=== PATIENT | female | born 1955 | race Caucasian/White ===

== ENCOUNTER → 2016-09-03 | Outpatient (CLI) | payer MEDICARE ==
[~2016-09-03] MED LIST: ADVAIR 100-501 EACH IH; ADVAIR 5001 DISK W/2 INH; ADVAIR 5001 DISK W/D PO; ALBUTEROL 0.5ML INH; ALBUTEROL17 GM INH; ALLEGRA PO; ALPRAZOLAM PO; ANORO ELLIPTA1 EACH INH; ARNUITY ELLIP100 MCG INH; AUGMENTIN PO; BACTRIM DS TABL1 TA1 PO; BENTYL10 M1 PO; BREO ELLIPTA 21 EACH INH; COMBIVENT INH14.7 GM INH; COMBIVENT RESPIM4 GM INH; COMBIVENT U/D3 M2 NEB; COMBIVENT U/D3 M3 INH; DETROL LA PO; DEXILANT60 MG PO; DUONEB 2.5-0.5 M3 ML NEB; GLUCOPHAGE500 M1 PO; HCTZ PO; HYDROCHLOROTHIA25 MG PO; HYDROCODON-ACE1 EAC5 PO; K-DUR20 ME1 PO; KLOR-CON PO; LASIX PO; LASIX20 MG PO; LEVAQUIN PO; LIPITOR PO; LIPITOR40 MG PO; MAGNESIUM27 MG PO; MEDROL PO; METFORMIN HCL500 M1 PO; METOCLOPRAMI10 MG/ML PO; MOBIC15 MG PO; MORGIDOX100 MG PO; NEXIUM PO; NORVASC PO; OXYGEN 2L; POTASSIUM CHLO10 MEQ PO; PREDNISOLONE SO10 MG PO; SPIRIVA18 MCG PO; SYMBICORT INH; TRIAMTERENE-HC1 EAC1 PO; TRIAMTERENE-HCT1 TA6 PO; VICODIN 5/500 T1 TAB PO; XANAX0.5 MG PO; ZANTAC150 MG PO; ZOFRAN ODT4 MG DOB; ZOFRAN PO; ZYRTEC PO
[2016-09-03 18:26] LABS: POC - CREATININE 1.45 mg/dL (0.44-1.03)
== END | disposition home or self-care (01) ==
LOC: CMRI 17:23
PROVIDERS: Otolaryngology
DX: H91.22 Sudden idiopathic hearing loss, left ear (principal)
CPT/HCPCS: 82565

== ENCOUNTER → 2016-09-18 | Outpatient (CLI) | payer MEDICARE ==
--- NOTE | ~2016-09-18 | CT77 ---
[facility] A Service of [facility] RADIOLOGY TEXT RESULTS PATIENT: VINOD MENDES LOCATION: [facility] : 54 UNIT #: [id number] AGE: [address]: KATARZYNA HALL SEX: F ORDER DR: [id number] [facility] [address] [place], [place] [address] [id number] O MR#: [id number] Acc #: [id number] NAME: VINOD MENDES. : 1955 SEX: F STUDY DATE/TIME: 09/18/2016 15:55 UNIT: [facility] ROOM: STUDY DESCRIPTION: CT IAC, Sella, Temporal Bone W Attending Physician: Katarzyna Hall Referring Physician: Katarzyna Hall Ordering Physician: Physician Non-Staff Primary Care Physician: Reji Cintron M.D. MEDICAL IMAGING REPORT This report is preliminary unless electronic signature is present EXAM Temporal bones CT no contrast. DATE 09/18/2016 PROCEDURE Axial unenhanced temporal bones CT with multiplanar reformats. This CT exam was performed with one or more of the following radiation dose reduction techniques: automatic exposure control, adjustment of mA and/or kV according to patient size, and iterative reconstruction. 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 FINDINGS Soft tissue structures are poorly evaluated by this technique but appear grossly normal. On the right, the middle ear and mastoids are normally pneumatized and aerated. The ossicles are normal. The labyrinth is normal without evidence of abnormal mineralization or surrounding demineralization. There is no carotid or jugular or facial nerve or tegmen dehiscence. On the left, the middle ear and mastoids are normally pneumatized and aerated. The ossicles are normal. The labyrinth is normal without evidence of abnormal mineralization or surrounding demineralization. There is no carotid or jugular or facial nerve or tegmen dehiscence. There is a normal foramen spinosum bilaterally. [facility] A Service of [facility] RADIOLOGY TEXT RESULTS PATIENT: VINOD MENDES LOCATION: [facility] : 54 UNIT #: [id number] AGE: [address]: KATARZYNA HALL SEX: F ORDER DR: IMPRESSION Normal bilateral temporal bone CT. Dictated by... Kevan Chun M.D. THIS IS AN ELECTRONICALLY VERIFIED REPORT Kevan Chun M.D. at 09/23/2016 5:05 PM DURGA/julissa TD: 09/21/2016 09:57 JOB #: [id number] MEDICAL IMAGING REPORT Page 1 of 1 COPY
[2016-09-18 16:16] LABS: POC - CREATININE 1.45 mg/dL (0.44-1.03)
== END | disposition home or self-care (01) ==
LOC: CCAT 14:32
PROVIDERS: Physician Assistant
DX: H91.21 Sudden idiopathic hearing loss, right ear (principal)
CPT/HCPCS: 70480; 82565

== ENCOUNTER 2016-10-09 15:41 | Emergency (ER) | payer MEDICARE ==
--- NOTE | ~2016-10-09 | CT4 ---
[facility] A Service of [facility] & [facility] RADIOLOGY TEXT RESULTS PATIENT: VINOD MENDES LOCATION: [facility] : 54 UNIT #: [id number] AGE: [address]: Armando Donato MD SEX: F ORDER DR: [id number] [facility] [address] [place], [place] [address] [id number] E MR#: [id number] Acc #: [id number] NAME: VINOD MENDES. : 1955 SEX: F STUDY DATE/TIME: 10/09/2016 17:19 UNIT: [facility] ROOM: STUDY DESCRIPTION: CT Abd and Pelv Wo Cont Attending Physician: Robin Donato M.D. Ordering Physician: Dedrick Root D.O. Primary Care Physician: Reji Cintron M.D. MEDICAL IMAGING REPORT This report is preliminary unless electronic signature is present EXAM CT abdomen and pelvis 10/09/2016 HISTORY Right flank pain for [address] abdomen and pelvis performed without administration of oral or intravenous contrast. This CT exam was performed with one or more of the following radiation dose reduction techniques: automatic exposure control, adjustment of mA and/or kV according to patient size, and iterative reconstruction. COMPARISON STUDIES No prior CTs of abdomen and pelvis for comparison. There are limited views of the upper thorax from a CT of the chest dated 06/17/2016. FINDINGS Centrilobular emphysema in the visualized lung bases. Some areas of linear scarring or atelectasis at the bilateral lung bases. No suspicious nodule. No clear indication of acute infectious or inflammatory disease. There are areas of mild bronchiectasis. Airspace disease seen in the lung bases on prior study have resolved. The inferior heart and pericardium suggests heart at upper limits of normal in size. Coronary arterial calcifications are present. The liver is unremarkable. Large non-obstructing gallstone currently located in gallbladder fundus measuring up to 3.1 cm in diameter. No pericholecystic inflammatory change. No ductal dilatation. No ductal calculi. The spleen, pancreas, adrenal glands unremarkable. No hydronephrosis or nephrolithiasis. A calcification in the medial right renal hilum is a vascular calcification. No perinephric or periureteral inflammatory change. No secondary findings [facility] A Service of [facility] RADIOLOGY TEXT RESULTS PATIENT: VINOD MENDES LOCATION: [facility] : 54 UNIT #: [id number] AGE: [address]: Armando Donato MD SEX: F ORDER DR: of recent stone passage. No cystic or solid mass lesion suggested. CT PELVIS: No inguinal adenopathy. Urinary bladder unremarkable. I believe the patient retains the uterus. Patient gives a history of prior surgery for prolapsed uterus and I believe the patient has undergone surgical tacking of the uterus to the anterior pelvic wall. The uterus extends rather far anteriorly and superiorly and there are overlying postoperative changes in the anterior abdominal wall. There is a posterior partially calcified uterine fibroid. No suspicious uterine or adnexal structures. Please correlate with surgical history. There is no free fluid the pelvis. No pelvic or retroperitoneal adenopathy. Distal esophagus, stomach, small bowel unremarkable. Appendix normal. Colon shows uncomplicated left taylor-colon diverticulosis. Atherosclerotic arterial calcifications. No aneurysm. Degenerative changes in the spine. No acute-appearing bony abnormality. IMPRESSION 1. No clearly acute abnormalities seen in the abdomen or pelvis. 2. Large fundal gallstones measuring up to 3.1 cm in diameter. No pericholecystic inflammatory change. No biliary ductal dilatation. 3. No renal calculi or obstruction. No perinephric inflammatory change. No secondary signs of recent stone passage. 4. Appearance of the uterus suggests prior surgical repair of uterine prolapse as described above. No acute appearing uterine or adnexal abnormality. 5. Appendix normal. 6. Uncomplicated left taylor-colon diverticulosis. 7. Emphysematous and mild bronchiectatic changes at lung bases. Minimal linear scarring or atelectasis. No basilar infectious or inflammatory lung disease suggested. 8. Extensive atherosclerotic arterial calcifications. No aneurysm. Dictated by... Kash Lnusford M.D. THIS IS AN ELECTRONICALLY VERIFIED REPORT Kash Lunsford M.D. at 10/13/2016 7:36 AM HI/jennifer TD: 10/09/2016 22:00 JOB #: [id number] MEDICAL IMAGING REPORT Page 1 of 1 COPY
--- NOTE | ~2016-10-09 | CR63 ---
[facility] A Service of [facility] RADIOLOGY TEXT RESULTS PATIENT: VINOD MENDES LOCATION: [facility] : 53 UNIT #: [id number] AGE: [address]: Dedrick Root DO SEX: F ORDER DR: [id number] [facility] [address] [place], [place] [address] [id number] E MR#: [id number] Acc #: [id number] NAME: VINOD MENDES. : 1955 SEX: F STUDY DATE/TIME: 10/09/2016 14:12 UNIT: [facility] ROOM: STUDY DESCRIPTION: CR Chest 2 View Attending Physician: Dedrick Root D.O. Ordering Physician: Dedrick Root D.O. Primary Care Physician: Reji Cintron M.D. MEDICAL IMAGING REPORT This report is preliminary unless electronic signature is present EXAM PA and lateral chest, 2 views. DATE OF STUDY 10/09/2016 HISTORY Shortness of air for 3 days. COMPARISON 06/17/2016 FINDINGS PA and lateral examination of the chest upright shows a good expansion of the parenchyma with a normal distribution of the pulmonary vascularity. There is no indication of congestion, effusion, infiltrate, tumor, or nodular density. The pleural reflections and diaphragmatic contours are normal. The cardiac silhouette and mediastinal anatomy is within normal limits. IMPRESSION Normal/negative PA and lateral chest. Dictated by... Kevan Chun M.D. THIS IS AN ELECTRONICALLY VERIFIED REPORT Kevan Chun M.D. at 10/09/2016 4:53 PM TEV/jt [facility] A Service [facility] RADIOLOGY TEXT RESULTS PATIENT: VINOD MENDES LOCATION: [facility] : 53 UNIT #: [id number] AGE: [address]: Dedrick Root DO SEX: F ORDER DR: TD: 10/09/2016 16:24 JOB #: [id number] MEDICAL IMAGING REPORT Page 1 of 1 COPY
[~2016-10-09 15:41] MED LIST changes: -AUGMENTIN PO; -BENTYL10 M1 PO; -BREO ELLIPTA 21 EACH INH; -COMBIVENT U/D3 M3 INH; -DEXILANT60 MG PO; -HYDROCODON-ACE1 EAC5 PO; -ZANTAC150 MG PO; -ZOFRAN PO
[2016-10-09 16:15] LABS: BASOPHIL% 0.3 % (0-2.5); EOSINOPHIL% 0.1 % (0.0-7.0); HEMATOCRIT 37.7 % (35.0-45.0); HEMOGLOBIN 11.9 gm/dL (12.0-16.0); LYMPHOCYTE% 8.5 % (17.0-45.0); MEAN CELL VOLUME 85.3 FL (83-96); MEAN CORPUSCULAR HGB CONC 31.6 g/dL (30-36); MONOCYTE# 0.4 X10e3 (0-1.0); MONOCYTE% 3.8 % (3.0-12.0); NEUTROPHIL# 10.4 X10e3 (1.5-7.1); NEUTROPHIL% 87.3 % (40-75); PLATELET COUNT 283 X10e3 (140-420); RED BLOOD COUNT 4.42 X10e (3.90-5.30); RED CELL DISTRIBUTION WIDTH 14.8 % (11.0-15.5); WHITE BLOOD COUNT 11.9 X10e3 (4.0-10.5)
[2016-10-09 16:16] LABS: DIFF IND NO
[2016-10-09 16:30] LABS: POC - CKMB 2.1 ng/mL (0.0-7.9); POC - TROPONIN <0.05 ng/mL (<=0.05)
[2016-10-09 16:42] LABS: ALBUMIN SERUM 3.2 g/dL (3.5-5.0); BILIRUBIN,TOTAL 0.2 mg/dL (0.2-2.0); BUN/CREATININE RATIO 18.57; CALCIUM SERUM 8.4 mg/dL (8.4-10.2); CREATININE SERUM 1.4 mg/dL (0.6-1.4); GLOM FILT RATE Estimated 40.2 mL/min (>60); POTASSIUM 3.8 mmol/L (3.5-5.1); PROTEIN TOTAL SERUM 6.5 g/dL (6.0-8.3)
[2016-10-09 17:16] LABS: URINE SOURCE CLEAN CATCH
[2016-10-09 17:21] LABS: URINE APPEARANCE CLEAR; URINE BILIRUBIN NEG (NEG); URINE BLOOD NEG (NEG); URINE COLOR YELLOW; URINE GLUCOSE >1000 MG/DL (NEG); URINE KETONE NEG (NEG); URINE LEUKOCYTE ESTERASE NEG (NEG); URINE NITRATE NEG (NEG); URINE PROTEIN NEG (NEG); URINE SPECIFIC GRAVITY 1.043 (1.003-1.035); URINE UROBILINOGEN 0.2 MG/DL (NEG)
[2016-10-09 17:32] LABS: CULTURE INDICATED? NO
[2016-10-26] MEDS ORDERED: METFORMIN HCL500 M1 PO (10:24)
[2016-10-26] MEDS ORDERED: COMBIVENT RESPIM4 GM INH (10:24)
[2016-10-26] MEDS ORDERED: ZANTAC150 MG PO (10:25)
[2016-10-26] MEDS ORDERED: COMBIVENT U/D3 M3 INH (10:27)
[2016-10-26] MEDS ORDERED: TRIAMTERENE-HC1 EAC1 PO (10:28)
[2016-10-26] MEDS ORDERED: BREO ELLIPTA 21 EACH INH (10:29)
[2016-10-27] MEDS ORDERED: DEXILANT60 MG PO (15:49)
[2016-10-27] MEDS ORDERED: ZOFRAN PO (15:49)
[2016-10-27] MEDS ORDERED: BENTYL10 M1 PO (15:50)
[2016-10-27] MEDS ORDERED: AUGMENTIN PO (15:53)
== END 2016-10-09 18:55 | disposition home or self-care (01) ==
LOC: CED 15:41
PROVIDERS: Emergency Medicine
DX: K80.20 Calculus of gallbladder without cholecystitis without obstruction (principal); E11.65 Type 2 diabetes mellitus with hyperglycemia; I10 Essential (primary) hypertension; J44.9 Chronic obstructive pulmonary disease, unspecified; F17.200 Nicotine dependence, unspecified, uncomplicated; Z88.8 Allergy status to other drugs, medicaments and biological substances
CPT/HCPCS: 36415; 71020; 74176; 80053; 81003; 82553; 83690; 84484; 85025; 85379; 96361; 96374; 99284; J1885

== ENCOUNTER 2016-10-12 22:11 | Emergency (ER) | payer MEDICARE ==
[2016-10-26] MEDS ORDERED: COMBIVENT RESPIM4 GM INH (10:24)
[2016-10-26] MEDS ORDERED: METFORMIN HCL500 M1 PO (10:24)
[2016-10-26] MEDS ORDERED: ZANTAC150 MG PO (10:25)
[2016-10-26] MEDS ORDERED: COMBIVENT U/D3 M3 INH (10:27)
[2016-10-26] MEDS ORDERED: TRIAMTERENE-HC1 EAC1 PO (10:28)
[2016-10-26] MEDS ORDERED: BREO ELLIPTA 21 EACH INH (10:29)
[2016-10-27] MEDS ORDERED: ZOFRAN PO (15:49)
[2016-10-27] MEDS ORDERED: DEXILANT60 MG PO (15:49)
[2016-10-27] MEDS ORDERED: BENTYL10 M1 PO (15:50)
[2016-10-27] MEDS ORDERED: AUGMENTIN PO (15:53)
== END 2016-10-13 | disposition home or self-care (01) ==
LOC: CED 22:11
DX: K80.80 Other cholelithiasis without obstruction (principal); B02.9 Zoster without complications; E11.9 Type 2 diabetes mellitus without complications; I10 Essential (primary) hypertension; J44.9 Chronic obstructive pulmonary disease, unspecified; Z98.890 Other specified postprocedural states
CPT/HCPCS: 99283

== ENCOUNTER → 2016-10-26 | Outpatient (CLI) | payer MEDICARE ==
[~2016-10-26] MED LIST changes: +AUGMENTIN PO; +BENTYL10 M1 PO; +BREO ELLIPTA 21 EACH INH; +COMBIVENT U/D3 M3 INH; +DEXILANT60 MG PO; +HYDROCODON-ACE1 EAC5 PO; +ZANTAC150 MG PO; +ZOFRAN PO
--- NOTE | ~2016-10-26 | EKG ---
PATIENT: VINOD MENDES UNIT #: [id number] Ventricular Rate: 98 BPM Atrial Rate: 98 BPM P-R Interval: 150 ms QRS Duration: 124 ms Q-T Interval: 390 ms QTC Calculation(Bezet): 497 ms P [place]: 61 degrees Calculated R [place]: 7 degrees Calculated T [place]: 31 degrees Diagnosis Line: Normal sinus rhythm Diagnosis Line: Right bundle branch block Diagnosis Line: Abnormal ECG Diagnosis Line: When compared with ECG of 23-MAY-2015 15:17, Diagnosis Line: Right bundle branch block is now Present Diagnosis Line: Confirmed by MAIKOL BATISTA MD ([id number]) on Diagnosis Line: 10/27/2016 1:29:10 PM INTERPRETING MD: LESTER DANIELLE
[2016-10-26 10:47] LABS: HEMATOCRIT 38.1 % (35.0-45.0); HEMOGLOBIN 12.1 gm/dL (12.0-16.0); MEAN CELL VOLUME 85.8 FL (83-96); MEAN CORPUSCULAR HEMOGLOBIN 27.3 PG (28-34); MEAN CORPUSCULAR HGB CONC 31.8 g/dL (30-36); MEAN PLATELET VOLUME 8.1 FL (6.5-11.5); RED BLOOD COUNT 4.45 X10e (3.90-5.30); RED CELL DISTRIBUTION WIDTH 14.8 % (11.0-15.5); WHITE BLOOD COUNT 11.9 X10e3 (4.0-10.5)
[2016-10-26 11:12] LABS: ALBUMIN SERUM 3.3 g/dL (3.5-5.0); BILIRUBIN,TOTAL 0.4 mg/dL (0.2-2.0); BUN/CREATININE RATIO 11.81; CALCIUM SERUM 8.5 mg/dL (8.4-10.2); CREATININE SERUM 1.1 mg/dL (0.6-1.4); GLOM FILT RATE Estimated 53.8 mL/min (>60); POTASSIUM 3.6 mmol/L (3.5-5.1); PROTEIN TOTAL SERUM 6.8 g/dL (6.0-8.3)
== END | disposition home or self-care (01) ==
LOC: CAMB 09:34
PROVIDERS: Surgery
DX: Z01.818 Encounter for other preprocedural examination (principal)
CPT/HCPCS: 36415; 80053; 85027; 93005

== ENCOUNTER 2016-10-29 09:00 | Observation (INO) | payer MEDICARE ==
--- NOTE | ~2016-10-29 | OR ---
Unit #: [id number] #: [id number] Patient: VINOD MENDES [id number] [address] [place], [place] [address] [id number] O MR#: [id number] NAME: VINOD MENDES ROOM: Date of Procedure: 10/29/2016 Admission Date: 10/29/2016 Surgeon: Michael Gibbs Jr., M.D. : 1955 Otr Driver(s): ELTON Attending Physician: Michael Gibbs Jr., M.D. Primary Care Physician: Reji Cintron M.D. PROCEDURE OPERATIVE NOTE INDICATION FOR PROCEDURE The patient is a 61-year-old white female with severe chronic obstructive pulmonary disease. She recently presented to the office complaining of mid epigastric abdominal pain and workup revealed evidence of large gallstones on CT scan. It was felt that she needed laparoscopic cholecystectomy and that she would be at a moderate risk. She has been informed of this and has elected to go ahead with surgery. She understands the procedure including the risks, including that of common duct injury, biliary leak and bleeding and intraabdominal organ injury and she consents. PREOPERATIVE DIAGNOSIS Cholecystitis with cholelithiasis. POSTOPERATIVE DIAGNOSIS Cholecystitis with cholelithiasis, noting large gallstones approximately 3 cm in diameter. Also noted were multiple adhesions to the lower abdomen and very friable cystic duct. PROCEDURE PERFORMED Laparoscopic cholecystectomy. ANESTHESIA General with endotracheal at the base, 0.5% Marcaine with epinephrine locally at the port sites. PACKER DRIED BEEF Jeanette Martinez. PROCEDURE The patient was positioned in the supine position and after being anesthetized and intubated, was prepped and draped in routine fashion for laparoscopic cholecystectomy. A small 0.5 cm incision was made in the right upper quadrant abdominal wall area and a 5 mm Optiview introduced in the abdomen. The abdomen was then inflated with CO2 gas. The camera was introduced. There was no evidence of any injury related to introduction of the Optiview port. There were multiple adhesions of the lower abdomen and a small incision was made to the right of the umbilicus. A 5 mm port was placed in this area under direct visualization and the camera shifted to this port site. An additional 5 mm port was placed in the right lateral abdominal wall area lateral to the first and an 11 mm port just to the right of the upper midline. The gallbladder was lifted. There was significant distension of the colon and it was felt that an additional 5 Unit #: [id number] #: [id number] Patient: VINOD MENDES C mm port was required. A 0.5 cm incision was made right mid abdominal wall area and port was then placed. This was a 5 mm port and using the Kittner the colon and duodenum were then retracted inferior to allow for visualization of the triangle of Calot. Multiple adhesions were taken down with both blunt and sharp dissection, using the Hook scissors, and after the gallbladder was mobilized down to the area of the cystic duct. There was obviously a small artery inferior to the cystic duct which was isolated and hemo clipped times three and divided. There was evidence of cystic duct above this area. This was isolated and just with manipulation with the right angle the cystic duct tore. This indicated significant friability. It was then grasped using a Dolphin grasper from the right side of the abdomen and three clips were placed with excellent security and with no evidence of any leaks after it was clipped. An additional small cystic artery was identified up near the hilum, indicating a posterior branch. This was hemo clipped and divided. The gallbladder was then removed from its bed with a hook cautery using a current of 20 and after it was released, it was placed in an EndoCatch bag and brought out through the larger port site. There as a large, approximately 3 cm stone within it. The port was replaced. Subhepatic space checked. There was no evidence of any significant bleeding, but there was slight oozing from the whole area and it was felt that a 10 mm Kushal Garcia drain was indicated. The drain was then placed in the subhepatic space in routine fashion and brought through the lateral port site and secured to the skin with a 2-0 silk suture. After total hemostasis was noted, the ports were removed. CO2 was expressed and the abdominal port sites were injected with 0.5% Marcaine with epinephrine locally and the fascia and larger port site were approximated with two separate rrpmdl-qt-deatz 0 Vicryl sutures. The wounds were irrigated after hemostasis achieved with Bovie cautery, skin edges were approximated with stainless-steel skin clips and skin stapling device. Sterile dressings were applied externally. Estimated blood loss less than 1020 mL. The patient received less than 1500 mL crystalloid solution during the procedure. Sponges and instrument counts were correct times three. There as one 10 mm Kushal Garcia drain used in the subhepatic space. No complications. The patient was taken to the recovery room with stable vital signs in satisfactory condition. Dictated by... Michael Gibbs Jr., M.D. JMDo/aleksandar TD: 10/29/2016 11:59 JOB #: [id number] CC: Michael Gibbs Jr., M.D. Richard D. Larson, M.D. PROCEDURE OPERATIVE NOTE Page 1 of 1 X Michael Gibbs MD X PROCEDURE OPERATIVE NOTE
--- NOTE | ~2016-10-29 | CO ---
Unit #: [id number] #: [id number] Patient: VINOD DE LA GARZA [id number] [address] [place], [place] [address] [id number] I MR#: [id number] NAME: VINOD DE LA GARZA. ROOM: 471 Age: 61 Sex: F Admission Date: 10/29/2016 : 1955 Attending Physician: Michael Gibbs Jr., M.D. Primary Care Physician: Reji Cintron M.D. Consultation Date: 10/30/2016 CONSULTATION REPORT REASON FOR CONSULTATION COPD, sleep apnea. HISTORY OF PRESENT ILLNESS A 61-year-old female with chronic respiratory failure, 3 L; COPD; undergoing evaluation for sleep apnea, who is followed closely by Dr. Huggins and his nurse practitioner Sheila Renee. She tested positive on the sleep apnea protocol. She had some hypoxemia and we were asked to evaluate the patient. This was prior to the knowledge that she was Dr. Huggins's patient. She is adamant about leaving as soon as possible, so I have completed the evaluation. She feels at baseline, she is a little congested, but no dee sputum production. No wheezing, shortness of breath of the ordinary or hemoptysis. There is no chest pain. PAST MEDICAL HISTORY Remarkable for COPD; tobacco abuse; chronic respiratory failure, 3 L; hypertension; gastroesophageal reflux; hyperlipidemia; and recent cholecystectomy by Dr. Gibbs. MEDICATIONS At home, she is on Breo once a day and Combivent as needed. Also, metformin, Zantac, triamterene, Dexilant, Zofran, Bentyl. Apparently had been treated with Augmentin. She will go home on Levaquin per Dr. Gibbs's orders. ALLERGIES Haldol. Apparently gets a skin reaction to NicoDerm. SOCIAL HISTORY Continued smoking. FAMILY HISTORY No familial lung disease. REVIEW OF SYSTEMS Fairly unremarkable. She keeps repeating that she wants to go home. She was somnolent with the pain medications. Now, she has decreased her pain medications and she is wide awake. She sits up in bed. She is wanting to go home. She denies fever, chills, chest pain, palpitations, appropriate abdominal pain from her surgery, leg pain swelling. Really all other review of systems are negative. PHYSICAL EXAMINATION GENERAL: Reveals a patient, who is obese. Unit #: [id number] #: [id number] Patient: VINOD DE LA GARZA VITAL SIGNS: Afebrile. Pulse 72, respiratory rate is 18, blood pressure is 128/73, 4 feet 9 inches, 154 pounds, BMI is 33 to 34. She appears stable on her 3 L. HEENT: Pupils are equal, round, and reactive to light. Sclerae anicteric. Head atraumatic. NECK: Supple. No supraclavicular or cervical adenopathy appreciated. CHEST: Markedly decreased breath sounds. Mildly prolonged expiratory phase. No consolidation. CARDIAC: Distant heart tones. No pathologic murmur, rub, or gallop. ABDOMEN: Postop soft, appropriately tender. EXTREMITIES: Reveal no clubbing, cyanosis, or edema. No calf tenderness. SKIN: Warm and dry without rash or diaphoresis. Her oral exam did show some erythema particularly at the left tonsillar bed. It appears she has a bruise on her left tongue. She does complain of some hoarseness from the ET tube. DIAGNOSTIC STUDIES IMAGING STUDIES: Right lower lobe infiltrate versus atelectasis. LABORATORY RESULTS: Arterial blood gas; pH is 7.42, pCO2 of 49, pO2 of 66 that is on her 3 L. BUN is 12, creatinine 0.8. Potassium mildly low at 3.4. White blood cell count 19.9, hemoglobin 9.8, platelet count 351. CARDIOVASCULAR STUDIES: No EKG. IMPRESSION 1. Chronic obstructive pulmonary disease, certainly appears to be stable. 2. Chronic respiratory failure, on 3 L, compensated acid-base. 3. Obstructive sleep apnea, apparently has undergone diagnostic study and to get CPAP titration soon. 4. Postop cholecystectomy. 5. Tobacco use. 6. Hoarseness and abnormal oral exam, most likely secondary to intubation. 7. Abnormal chest x-ray with possible right lower lobe infiltrate. PLAN Dr. Gibbs has ordered Levaquin. This should cover pulmonary pathogens. It is okay to discharge from a pulmonary point of view and she will follow up with Dr. Huggins. I would consider repeat chest x-ray in 3 to 6 weeks. Appropriate evaluation if remains abnormal. Obviously, continue her oxygen, Breo, and Combivent. I have asked her to keep her followup for her CPAP titration as I suspect she has very severe sleep apnea. She should follow up with her hoarseness and oral exam, but I suspect both will improve over time. Thank you very much for allowing me to participate in the care of Ms. De La Garza. Dictated by... Arash Young M.D. KENYA/katina TD: 10/31/2016 23:49 JOB #: [id number] Prem Huggins M.D. Unit #: [id number] #: [id number] Patient: VINOD DE LA GARZA CONSULTATION REPORT Page 1 of 1 X Arash Young MD X CONSULTATION REPORT
--- NOTE | ~2016-10-29 | CR63 ---
[facility] A Service of [facility] RADIOLOGY TEXT RESULTS PATIENT: VINOD MENDES LOCATION: [place] [address]- : 53 UNIT #: [id number] AGE: [address]: Michael Gibbs MD SEX: F ORDER DR: [id number] [facility] [address] [place], [place] [address] [id number] I MR#: [id number] Acc #: [id number] NAME: VINOD MENDES. : 1955 SEX: F STUDY DATE/TIME: 10/30/2016 7:49 UNIT: [facility] ROOM: [facility] STUDY DESCRIPTION: CR Chest 2 View Attending Physician: Michael Gibbs Jr., M.D. Ordering Physician: Reji Daneille M.D. Primary Care Physician: Reji Cintron M.D. MEDICAL IMAGING REPORT This report is preliminary unless electronic signature is present EXAM PA and lateral chest. INDICATION Shortness of breath today. COMPARISON 10/09/2016 FINDINGS There is a band of atelectasis in the right mid zone. There is atelectasis or consolidation in the right lower lobe. Heart size stable. Degenerative changes thoracic spine. IMPRESSION There is atelectasis or consolidation in the right lower lobe and a band of atelectasis in the right mid zone. Dictated by... Uvaldo Alvarez M.D. THIS IS AN ELECTRONICALLY VERIFIED REPORT Uvaldo Alvarez M.D. at 11/02/2016 7:37 AM EDGAR/julissa TD: 10/30/2016 09:23 JOB #: [id number] MEDICAL IMAGING REPORT Page 1 of 1 COPY
[~2016-10-29 09:00] MED LIST changes: -HYDROCODON-ACE1 EAC5 PO
[2016-10-30 04:16] LABS: ARTERIAL BLD GAS O2 SATURATION 94.4 % (90.0-100.0); ARTERIAL BLOOD GAS CARBOXY HB 0.9 %sat (0.0-9.0); ARTERIAL BLOOD GAS MET HB 0.5 %sat (0.0-2.0); ARTERIAL BLOOD GAS pH 7.423 (7.350-7.450)
[2016-10-30 04:26] LABS: ARTERIAL BLOOD GAS ALLEN TEST NORMAL; ARTERIAL BLOOD GAS ART SITE RIGHT RADIAL; ARTERIAL BLOOD GAS DELIVERY NASAL CANNULA; ARTERIAL BLOOD GAS PO2 66.4 mmHg (80.0-100); ARTERIAL DRAW? YES
[2016-10-30 07:23] LABS: HEMATOCRIT 34.1 % (35.0-45.0); HEMOGLOBIN 10.8 gm/dL (12.0-16.0); MEAN CELL VOLUME 85.4 FL (83-96); MEAN CORPUSCULAR HGB CONC 31.6 g/dL (30-36); MEAN PLATELET VOLUME 8.1 FL (6.5-11.5); RED BLOOD COUNT 3.99 X10e (3.90-5.30); WHITE BLOOD COUNT 19.8 X10e3 (4.0-10.5)
[2016-10-30 07:38] LABS: ALBUMIN SERUM 2.7 g/dL (3.5-5.0); BILIRUBIN,TOTAL 0.4 mg/dL (0.2-2.0); CALCIUM SERUM 8.1 mg/dL (8.4-10.2); CREATININE SERUM 0.8 mg/dL (0.6-1.4); GLOM FILT RATE Estimated 79.1 mL/min (>60); POTASSIUM 3.4 mmol/L (3.5-5.1); PROTEIN TOTAL SERUM 6.1 g/dL (6.0-8.3)
[2016-10-30] MEDS ORDERED: HYDROCODON-ACE1 EAC5 PO (12:17)
[2016-10-30] MEDS ORDERED: LEVAQUIN PO (12:18)
== END 2016-10-30 13:34 | disposition home or self-care (01) ==
LOC: CSUR 09:00 → CPACUOF 11:45 → C4C 11:45 → CSUR 12:31 → CPACUOF 12:31 → C4C 16:24
PROVIDERS: Internal Medicine; Surgery
PROC: 0FT44ZZ Resection of Gallbladder, Percutaneous Endoscopic Approach (ICD-10-PCS; principal; 2016-10-29 09:30)
DX: K80.12 Calculus of gallbladder with acute and chronic cholecystitis without obstruction (principal); J96.11 Chronic respiratory failure with hypoxia; J44.9 Chronic obstructive pulmonary disease, unspecified; I10 Essential (primary) hypertension; K21.9 Gastro-esophageal reflux disease without esophagitis; E78.5 Hyperlipidemia, unspecified; F17.210 Nicotine dependence, cigarettes, uncomplicated; G47.33 Obstructive sleep apnea (adult) (pediatric); R49.0 Dysphonia; K82.8 Other specified diseases of gallbladder; E11.9 Type 2 diabetes mellitus without complications; Z79.84 Long term (current) use of oral hypoglycemic drugs
CPT/HCPCS: 36600; 71020; 80053; 82803; 82947; 85027; 88304; 94002; 94640; 94760; 96374; 96375; 96376; G0378; J0330; J0690; J1650; J2250; J2270; J2405; J2550; J2710; J3010

== ENCOUNTER 2016-12-02 13:12 | Emergency (ER) | payer MEDICARE ==
--- NOTE | ~2016-12-02 | CT4 ---
[facility] A Service of [facility] RADIOLOGY TEXT RESULTS PATIENT: VINOD MENDES LOCATION: [facility] : 53 UNIT #: [id number] AGE: [address]: Horace Frazier MD SEX: F ORDER DR: [id number] [place] [id number] [facility]. [place], [place] [address] [id number] E MR#: [id number] Acc #: [id number] NAME: VINOD MENDES. : 1955 SEX: F STUDY DATE/TIME: 12/02/2016 15:19 UNIT: [facility] ROOM: STUDY DESCRIPTION: CT Abd and Pelv Wo Cont Attending Physician: Horace Frazier M.D. Ordering Physician: Horace Frazier M.D. Primary Care Physician: Reji Cintron M.D. MEDICAL IMAGING REPORT This report is preliminary unless electronic signature is present EXAM CT abdomen and pelvis without contrast DATE 12/02/2016 HISTORY Right-side abdominal pain for 3 weeks. Abdominal surgery 10/29/2016. Previous cholecystectomy. COPD. Asthma. Diabetes. Cholecystectomy. COMPARISON CT abdomen and pelvis without contrast 10/09/2016. PROCEDURE 5 mm axial images from lung bases through lesser trochanters without intravenous or enteric contrast administration. Sagittal and coronal reformatted images were obtained. This CT exam was performed with one or more of the following radiation dose reduction techniques: automatic control, adjustment of mA and/or kV according to patient size, and iterative reconstruction. FINDINGS ABDOMEN FINDINGS: Cholecystectomy changes in the right upper quadrant without drainable fluid collection or abscess. Subcutaneous fat soft tissue thickening or stranding likely representing cellulitic change from recent laparoscopic port insertion site. Minimal atelectasis in the right middle lobe. Coronary artery calcifications. Noncontrast appearance of the liver, spleen, pancreas, adrenals and kidneys within normal limits. Advanced calcific atherosclerosis within the abdominal aorta and common iliac arteries. [facility] A Service [facility] RADIOLOGY TEXT RESULTS PATIENT: VINOD MENDES LOCATION: [facility] : 53 UNIT #: [id number] AGE: [address]: Horace Frazier MD SEX: F ORDER DR: Appendix is normal. Limited evaluation of bowel due to lack of enteric contrast but no focal bowel inflammation is seen. Diverticular changes are present within the colon without evidence of acute diverticulitis. PELVIS FINDINGS: Urinary bladder is decompressed. Small calcified uterine fibroid. The uterus is adhesed to the lower anterior abdominal wall. Rectum within normal limits. IMPRESSION 1. No acute findings in the abdomen or pelvis. 2. There is focal cellulitic type change within the right upper quadrant anterior abdominal wall likely representing the laparoscopic port insertion site. 3. Cholecystectomy changes. No pelvic or abdominal free fluid or abscess. 4. The uterus is adhesed or surgically applied to the lower anterior abdominal wall. It is unchanged from prior exam. Small uterine fibroid. 5. Coronary artery calcifications. Please correlate with cardiac history. Dictated by... Sarah Kim M.D. THIS IS AN ELECTRONICALLY VERIFIED REPORT Sarah Kim M.D. at 12/03/2016 8:36 AM ANANYA/deuce TD: 12/02/2016 16:55 JOB #: [id number] MEDICAL IMAGING REPORT Page 1 of 1 COPY
[~2016-12-02 13:12] MED LIST changes: +HYDROCODON-ACE1 EAC5 PO
[2016-12-02 14:03] LABS: BASOPHIL# 0.1 X10e3 (0-0.3); BASOPHIL% 0.9 % (0-2.5); EOSINOPHIL# 0.3 X10e3 (0-0.7); EOSINOPHIL% 2.5 % (0.0-7.0); HEMATOCRIT 36.2 % (35.0-45.0); HEMOGLOBIN 11.4 gm/dL (12.0-16.0); LYMPHOCYTE# 2.7 X10e3 (1.0-3.5); LYMPHOCYTE% 20.2 % (17.0-45.0); MEAN CELL VOLUME 84.6 FL (83-96); MEAN CORPUSCULAR HEMOGLOBIN 26.7 PG (28-34); MEAN CORPUSCULAR HGB CONC 31.5 g/dL (30-36); MEAN PLATELET VOLUME 8.5 FL (6.5-11.5); MONOCYTE# 1.1 X10e3 (0-1.0); MONOCYTE% 8.2 % (3.0-12.0); NEUTROPHIL% 68.2 % (40-75); PLATELET COUNT 341 X10e3 (140-420); RED BLOOD COUNT 4.28 X10e (3.90-5.30); WHITE BLOOD COUNT 13.2 X10e3 (4.0-10.5)
[2016-12-02 14:06] LABS: DIFF IND NO
[2016-12-02 14:31] LABS: ALBUMIN SERUM 3.4 g/dL (3.5-5.0); ALKALINE PHOSPHATASE 80 U/L (32-92); ALT (SGPT) 12 U/L (10-40); AMYLASE 10 U/L (0-46); AST (SGOT) 19 U/L (10-42); BILIRUBIN,TOTAL 0.7 mg/dL (0.2-2.0); BLOOD UREA NITROGEN 15 mg/dL (9-23); CALCIUM SERUM 8.8 mg/dL (8.4-10.2); CARBON DIOXIDE 28 mmol/L (22-31); CHLORIDE 101 mmol/L (100-111); CREATININE SERUM 1.2 mg/dL (0.6-1.4); GLOM FILT RATE Estimated 48.4 mL/min (>60); GLUCOSE FASTING 155 mg/dL (70-110); LIPASE 25 U/L (22-51); PROTEIN TOTAL SERUM 7.4 g/dL (6.0-8.3); SODIUM 138 mmol/L (135-145)
[2016-12-02 14:48] LABS: BILIRUBIN, DIRECT <0.1 mg/dL (0.0-0.2); BILIRUBIN,INDIRECT 0.6 mg/dL (0.0-0.9)
[2016-12-02 15:04] LABS: URINE SOURCE CLEAN CATCH
[2016-12-02 15:08] LABS: URINE APPEARANCE CLEAR; URINE BILIRUBIN NEG (NEG); URINE BLOOD NEG (NEG); URINE COLOR YELLOW; URINE GLUCOSE NEG (NEG); URINE KETONE NEG (NEG); URINE LEUKOCYTE ESTERASE 1+ (NEG); URINE NITRATE NEG (NEG); URINE PH 5.5 (5-8); URINE PROTEIN NEG (NEG); URINE SPECIFIC GRAVITY 1.016 (1.003-1.035); URINE UROBILINOGEN 0.2 MG/DL (NEG)
[2016-12-02 15:09] LABS: U HYALINE CASTS AUWI 0-2 /[LPF]; URBCS1 AUWI 0-2 /[HPF] (0-2); URINE BACTERIA AUWI NEG (NEGATIVE); URINE SQUAMOUS EPITHELIAL CELL OCC /[HPF]
[2016-12-02 15:11] LABS: CULTURE INDICATED? NO
== END 2016-12-02 16:37 | disposition home or self-care (01) ==
LOC: CED 13:12
DX: R10.11 Right upper quadrant pain (principal); E87.6 Hypokalemia; K21.9 Gastro-esophageal reflux disease without esophagitis; E11.9 Type 2 diabetes mellitus without complications; I10 Essential (primary) hypertension; J45.909 Unspecified asthma, uncomplicated; Z90.49 Acquired absence of other specified parts of digestive tract; Z88.8 Allergy status to other drugs, medicaments and biological substances
CPT/HCPCS: 36415; 74176; 80048; 80076; 81003; 82150; 83690; 85025; 99284